=== PATIENT | male | born 1985 ===

== ENCOUNTER 2023-07-19 14:51 | Outpatient (REF) | payer MEDICAID, SELFPAY ==
[2023-07-19 16:11] LABS: MANUAL DIFF FLAG NO
[2023-07-19 16:21] LABS: Basophils Percent Auto 0.2 % (0-2); Hematocrit 44.7 % (42.0-52.0); Imm Gran Abs Auto 0.02 X10*3/uL (0.00-0.03); Imm Gran Pct Auto 0.2 % (0.0-0.4); Lymphocytes Absolute Auto 2.5 X10*3/uL (1.2-4.9); Lymphocytes Percent Auto 28.1 % (20-40); Mean Corpuscular HGB Conc 33.6 g/dl (31.0-36.0); Mean Corpuscular Hemoglobin 29.4 pg (27.0-33.0); Mean Corpuscular Volume 87.6 fL (80.0-98.0); Mean Platelet Volume 9.6 fL (9.4-12.4); Monocytes Absolute Auto 0.5 X10*3/uL (0.1-1.2); Monocytes Percent Auto 5.9 % (2-11); Neutrophils Absolute Auto 5.8 x10*3/uL (2.0-8.3); Neutrophils Percent Auto 65.6 % (45-73); Platelet Count 285 X10*3/uL (160-400); Red Cell Distribution Width 12.5 % (11.0-16.0); White Blood Count 8.8 X10*3/uL (4.8-10.8)
[2023-07-19 17:48] LABS: Alanine Aminotransferase 20 U/L (0-40); Albumin Level 5.1 g/dL (3.5-5.0); Alkaline Phosphatase 86 U/L (39-117); Anion Gap 12 (12-20); Aspartate Amino Transferase 19 U/L (5-37); Bilirubin Direct 0.3 mg/dL (0.0-0.5); Bilirubin Total 0.8 mg/dL (0.0-1.0); Blood Urea Nitrogen 14 mg/dL (9-16); Calcium 10.5 mg/dL (8.4-10.2); Carbon Dioxide 28 mmol/L (22-29); Chloride 105 mmol/L (96-108); Cholesterol 138 mg/dL (<200); Estimated Glomerular Filt Rate > 60; Glucose Random 218 mg/dL (60-115); HDL Cholesterol 43 mg/dL (>40); LDL Cholesterol Calculated 84 mg/dL (<100); Potassium 3.8 mmol/L (3.3-5.1); Sodium 141 mmol/L (135-145); Triglycerides 58 mg/dL (<150)
== END 2023-07-19 14:52 | disposition home or self-care (01) ==
LOC: HO.HHCL 14:51
PROVIDERS: Visit Provider Internal Medicine
DX: E11.42 Type 2 diabetes mellitus with diabetic polyneuropathy (principal)
CPT/HCPCS: 36415; 80048; 80061; 80076; 85025

== ENCOUNTER 2023-08-17 10:12 | Outpatient (REF) | payer MEDICAID, SELFPAY ==
--- NOTE | 2023-08-17 10:20 | EMG_ITS ---
Bilateral median and ulnar motor and sensory studies were performed. Bilateral radial and medial and lateral antecubital brachial sensory studies were performed, and paraspinal muscles were tested with a needle. IMPRESSION: 1. Mild bilateral median neuropathy across carpal tunnel. 2. Mild bilateral ulnar neuropathy across cubital tunnel. MD ASIF Oropeza/BASILIO / [phone]
== END 2023-08-17 10:13 | disposition home or self-care (01) ==
LOC: HO.NEURO 10:12
PROVIDERS: PCP Internal Medicine; Visit Provider Internal Medicine
DX: M79.641 Pain in right hand (principal); M79.642 Pain in left hand
CPT/HCPCS: 95886; 95913

== ENCOUNTER 2023-11-19 02:30 | Emergency (ER) | payer MEDICAID, SELFPAY ==
[2023-11-19 02:39] VITALS: BP 144/74; BP 148/86; PULSE 59; PULSE 72; RESP 18; TEMP 36.7; O2SAT 100; O2SAT 96; BMI 24.8
--- NOTE | 2023-11-19 02:40 | ED.NAVMDI ---
HPI - Nausea/Vomiting/Diarrhea General Chief complaint: Nausea/Vomiting/Diarrhea Stated complaint: NAUSEA VOMITTING Time Seen by Provider: 11/19/23 02:40 Source: patient Mode of arrival: ambulatory Limitations: no limitations History of Present Illness ED Provider: thanh LUQUE Narrative: Patient's history of anxiety cannabis abuse been vomiting for last 5 days with history of same in the past no diarrhea no significant abdominal pain no fever at home noticed to have 100.8 rectal temperature on arrival no other family member sick Related Data Previous Rx's ?Medication ?Instructions ?Recorded lorazepam 1 mg tablet (Ativan) 1 mg PO BID PRN anxiety #14 tabs 11/19/23 ondansetron 4 mg disintegrating 4 mg PO Q6-8H PRN nausea and 11/19/23 tablet vomiting #7 tabs Allergies Allergy/AdvReac Type Severity Reaction Status Date / Time No Known Allergies Allergy Verified 11/19/23 02:44 Review of Systems Review of Systems: Yes all other systems are reviewed and are negative [facility] Social History Social History Smoked in Last 30 Days: Yes Use of substances other than those prescribed or required for medical reasons: No Advance Directives: No Advance Directives Information Provided: No Do you have a plan to hurt others: No Plan Physical Exam Vital Signs: Vital Signs: Last Vital Signs Temp 99.3 F 11/19/23 05:16 Pulse 66 11/19/23 06:17 Resp 20 11/19/23 06:17 BP 98/53 L 11/19/23 06:17 Pulse Ox 97 11/19/23 06:17 O2 Del Method Room Air 11/19/23 06:17 BMI result Body Mass Index 24.8 Appearance: Alert. Oriented X3. No acute distress. Anxious Eyes: PERRLA, No Nystagmus ENT: Pharynx normal. Oral Mucosa moist Neck: Normal inspection. Neck supple. CVS: Normal heart rate and rhythm. Pulses normal. Respiratory: No respiratory distress. Equal air entry bilateral, no wheezing/rales/rhonchi Abdomen: Soft and nontender. Bowel sounds are present, no mass palpable, no CVA tenderness Skin: Skin warm and dry. Normal skin color. Normal skin turgor. Extremities: No lower extremity edema. No calf tenderness Neuro: Oriented X 3. No motor deficit. Medications Administered Discontinued Medications Generic Name Dose Route Start Last Admin Trade Name David PRN Reason Stop Dose Admin Sodium Chloride 1,000 mls @ 999 mls/hr 11/19/23 03:32 11/19/23 05:04 Ns IV 11/19/23 04:32 Infused .Q1H1M ONE Infusion Sodium Chloride 1,000 mls @ 999 mls/hr 11/19/23 03:32 11/19/23 05:04 Ns IV 11/19/23 04:32 Infused .Q1H1M ONE Infusion Ketorolac Tromethamine 30 mg 11/19/23 03:56 11/19/23 04:03 Ketorolac Tromethamine 30 Mg/Ml Vial IVPUSH 11/19/23 03:57 30 mg ONCE ONE Administration Lorazepam 2 mg 11/19/23 03:54 11/19/23 04:03 Lorazepam 2 Mg/Ml Vial IVPUSH 11/19/23 03:55 2 mg ONCE ONE Administration Ondansetron HCl 4 mg 11/19/23 03:02 11/19/23 03:04 Ondansetron Hcl 4 Mg/2 Ml Vial IVPUSH 11/19/23 03:03 4 mg ONCE ONE Administration Medical Decision Making Medical Decision Making [facility] Narrative: Patient with acute nausea vomiting with the use of cannabis likely the cause with anxiety and cyclic vomiting received 2 L of IV fluids initial labs showed elevated lactic acid from volume loss patient is not septic repeat lactic acid level was normal no abdominal pain creatinine level was also elevated when patient arrived repeat creatinine level has improved to 1.22 patient taking p.o. fluids now will discharge patient home Differential Diagnosis Differential Diagnoses: The differential diagnosis associated with the presentation includes Viral gastroenteritis/cyclic vomiting/gastritis/anxiety Admission/Observation Consideration of admission/observation: Escalation of care including admission/observation considered Lab Data [facility] Lab Attestation statement: I reviewed the patient's lab results. 11/19/23 02:57 11/19/23 06:21 Labs: Lab Results 11/19/23 11/19/23 11/19/23 Range/Units 02:57 04:04 05:20 WBC 14.6 H (4.8-10.8) X10*3/uL RBC 5.34 (4.60-5.80) X10*6/uL Hgb 15.8 (14.0-18.0) g/dl Hct 45.5 (42.0-52.0) % MCV 85.2 (80.0-98.0) fL MCH 29.6 (27.0-33.0) pg MCHC 34.7 (31.0-36.0) g/dl RDW 13.2 (11.0-16.0) % Plt Count 284 (160-400) X10*3/uL MPV 9.5 (9.4-12.4) fL Immature Gran % (Auto) 0.5 H (0.0-0.4) % Neut % (Auto) 80.9 H (45-73) % Lymph % (Auto) 12.4 L (20-40) % [place] % (Auto) 6.0 (2-11) % Eos % (Auto) 0.0 (0-4) % Baso % (Auto) 0.2 (0-2) % Lymph # (Auto) 1.8 (1.2-4.9) X10*3/uL [place] # (Auto) 0.9 (0.1-1.2) X10*3/uL Eos # (Auto) 0.0 (0.0-0.4) X10*3/uL Baso # (Auto) 0.0 (0.0-0.2) X10*3/uL Abs Immat Gran (auto) 0.07 H (0.00-0.03) X10*3/uL Absolute Neuts (auto) 11.8 H (2.0-8.3) x10*3/uL Absolute Nucleated RBC 0.000 (0.0-0.012) X10*3/uL Nucleated RBC % (auto) 0.0 (0.0-0.2) /100WBC Sodium 146 H (135-145) mmol/L Potassium 4.4 (3.3-5.1) mmol/L Chloride 107 (96-108) mmol/L Carbon Dioxide 21 L (22-29) mmol/L Anion Gap 22 H (12-20) BUN 21 H (9-16) mg/dL Creatinine 1.64 H (0.5-1.4) mg/dL Estim Creat Clear Calc 58.5 Estimated GFR 47 Random Glucose 232 H (60-115) mg/dL Lactic Acid 3.4 H* (0.5-2.0) mmol/L Lactic Acid F/U @ 2Hr 1.1 (0.5-2.0) mmol/L Calcium 10.8 H (8.4-10.2) mg/dL Total Bilirubin 1.0 (0.0-1.0) mg/dL Direct Bilirubin 0.2 (0.0-0.5) mg/dL AST 16 (5-37) U/L ALT 13 (0-40) U/L Alkaline Phosphatase 89 (39-117) U/L Total Protein 8.5 H (6.5-8.0) g/dL Albumin 5.3 H (3.5-5.0) g/dL Lipase 8 (8-78) U/L COVID-19 (ABDULL[facility]I) Negative (Negative) COVID-19 Clin Com See Note 11/19/23 Range/Units 06:21 WBC (4.8-10.8) X10*3/uL RBC (4.60-5.80) X10*6/uL Hgb (14.0-18.0) g/dl Hct (42.0-52.0) % MCV (80.0-98.0) fL MCH (27.0-33.0) pg MCHC (31.0-36.0) g/dl RDW (11.0-16.0) % Plt Count (160-400) X10*3/uL MPV (9.4-12.4) fL Immature Gran % (Auto) (0.0-0.4) % Neut % (Auto) (45-73) % Lymph % (Auto) (20-40) % [place] % (Auto) (2-11) % Eos % (Auto) (0-4) % Baso % (Auto) (0-2) % Lymph # (Auto) (1.2-4.9) X10*3/uL [place] # (Auto) (0.1-1.2) X10*3/uL Eos # (Auto) (0.0-0.4) X10*3/uL Baso # (Auto) (0.0-0.2) X10*3/uL Abs Immat Gran (auto) (0.00-0.03) X10*3/uL Absolute Neuts (auto) (2.0-8.3) x10*3/uL Absolute Nucleated RBC (0.0-0.012) X10*3/uL Nucleated RBC % (auto) (0.0-0.2) /100WBC Sodium 146 H (135-145) mmol/L Potassium 3.5 D (3.3-5.1) mmol/L Chloride 113 H (96-108) mmol/L Carbon Dioxide 23 (22-29) mmol/L Anion Gap 14 (12-20) BUN 21 H (9-16) mg/dL Creatinine 1.22 (0.5-1.4) mg/dL Estim Creat Clear Calc 78.6 Estimated GFR > 60 Random Glucose 167 H (60-115) mg/dL Lactic Acid (0.5-2.0) mmol/L Lactic Acid F/U @ 2Hr (0.5-2.0) mmol/L Calcium 8.7 D (8.4-10.2) mg/dL Total Bilirubin (0.0-1.0) mg/dL Direct Bilirubin (0.0-0.5) mg/dL AST (5-37) U/L ALT (0-40) U/L Alkaline Phosphatase (39-117) U/L Total Protein (6.5-8.0) g/dL Albumin (3.5-5.0) g/dL Lipase (8-78) U/L COVID-19 ([facility]ULL[facility]) (Negative) COVID-19 Clin Com Critical Care Time Critical Care Time Critical Care Time: Yes Total Critical Care Time: 35 Attestation: The patient was critically ill with a high probability of imminent or life threatening deterioration. I spent greater than 40???minutes of discontinuous time evaluating the patient,delivering critical care at the bedside, discussing and evaluating pertinent data with consultants. Critical care time does not include time spent performing separately billable procedures or teaching. Total time spent performing critical care was 35???minutes. Discharge Plan Discharge Clinical Impression: Gastroenteritis, Cannabis abuse, Dehydration, Anxiety Patient Disposition: Home, Self-Care Instructions: Gastroenteritis (ED), Generalized Anxiety Disorder (ED), Cannabis Abuse (ED) Additional Instructions: Drink plenty of fluids Stop using cannabis Medicine for anxiety and nausea as prescribed Prescriptions: New ondansetron 4 mg tablet,disintegrating 4 mg PO Q6-8H PRN (Reason: nausea and vomiting) Qty: 7 0RF lorazepam [Ativan] 1 mg tablet 1 mg PO BID PRN (Reason: anxiety) Qty: 14 0RF Print Language: Kazakh
[2023-11-19 03:02] LABS: MANUAL DIFF FLAG NO
[2023-11-19 03:03] LABS: Basophils Percent Auto 0.2 % (0-2); Hematocrit 45.5 % (42.0-52.0); Hemoglobin 15.8 g/dl (14.0-18.0); Imm Gran Abs Auto 0.07 X10*3/uL (0.00-0.03); Imm Gran Pct Auto 0.5 % (0.0-0.4); Lymphocytes Absolute Auto 1.8 X10*3/uL (1.2-4.9); Lymphocytes Percent Auto 12.4 % (20-40); Mean Corpuscular HGB Conc 34.7 g/dl (31.0-36.0); Mean Corpuscular Hemoglobin 29.6 pg (27.0-33.0); Mean Corpuscular Volume 85.2 fL (80.0-98.0); Mean Platelet Volume 9.5 fL (9.4-12.4); Monocytes Absolute Auto 0.9 X10*3/uL (0.1-1.2); Neutrophils Absolute Auto 11.8 x10*3/uL (2.0-8.3); Neutrophils Percent Auto 80.9 % (45-73); Platelet Count 284 X10*3/uL (160-400); Red Blood Count 5.34 X10*6/uL (4.60-5.80); Red Cell Distribution Width 13.2 % (11.0-16.0); White Blood Count 14.6 X10*3/uL (4.8-10.8)
[2023-11-19] MEDS: ondansetron HCL 4 MG/2 ML VIAL IVPUSH (03:04)
[2023-11-19 03:19] LABS: Lactic Acid 3.4 mmol/L (0.5-2.0)
[2023-11-19 03:24] LABS: Alanine Aminotransferase 13 U/L (0-40); Albumin Level 5.3 g/dL (3.5-5.0); Alkaline Phosphatase 89 U/L (39-117); Anion Gap 22 (12-20); Aspartate Amino Transferase 16 U/L (5-37); Bilirubin Direct 0.2 mg/dL (0.0-0.5); Blood Urea Nitrogen 21 mg/dL (9-16); Calcium 10.8 mg/dL (8.4-10.2); Carbon Dioxide 21 mmol/L (22-29); Chloride 107 mmol/L (96-108); Creatinine Clr Calc Pharmacy 58.5; Estimated Glomerular Filt Rate 47; Glucose Random 232 mg/dL (60-115); Lipase 8 U/L (8-78); Potassium 4.4 mmol/L (3.3-5.1); Sodium 146 mmol/L (135-145); Total Protein 8.5 g/dL (6.5-8.0)
[2023-11-19] MEDS: 0.9 % Sodium Chloride 1,000 ML 999 ML IV ×2 (03:40)
[2023-11-19 03:50] VITALS: BP 103/54; PULSE 60; RESP 14; TEMP 38.3; O2SAT 97
[2023-11-19] MEDS: LORazepam 2 MG/ML VIAL IVPUSH (04:03)
[2023-11-19] MEDS: Ketorolac Tromethamine 30 MG/ML VIAL IVPUSH (04:03)
[2023-11-19 04:24] LABS: COVID-19 Test Negative (Negative); IDNOW Serial# 6674DD1D
[2023-11-19 05:00] LABS: Reflex Lactate? Lactic Acid Added
[2023-11-19 05:16] VITALS: BP 102/51; PULSE 67; RESP 20; TEMP 37.4; O2SAT 95
[2023-11-19 05:35] LABS: ~Lactic Acid-LAB USE ONLY 1.1 mmol/L (0.5-2.0)
[2023-11-19 06:16] VITALS: BP 99/54; PULSE 59; RESP 20; O2SAT 99
[2023-11-19 06:17] VITALS: BP 98/49; BP 98/53; PULSE 66; RESP 20; O2SAT 97
[2023-11-19 06:39] LABS: Anion Gap 14 (12-20); Blood Urea Nitrogen 21 mg/dL (9-16); Calcium 8.7 mg/dL (8.4-10.2); Carbon Dioxide 23 mmol/L (22-29); Chloride 113 mmol/L (96-108); Creatinine Clr Calc Pharmacy 78.6; Estimated Glomerular Filt Rate > 60; Glucose Random 167 mg/dL (60-115); Potassium 3.5 mmol/L (3.3-5.1); Sodium 146 mmol/L (135-145)
--- NOTE | 2023-11-19 06:40 | PC.NURSE ---
resting quietly on stretcher, at this time, no more n/v at this time, awaiting lab results
[2023-11-19 07:11] VITALS: BP 98/53; PULSE 66; RESP 18; TEMP 37.1; O2SAT 97
== END 2023-11-19 07:12 | disposition home or self-care (01) ==
PROVIDERS: Emergency Provider Internal Medicine; PCP Internal Medicine
DX: K52.9 Noninfective gastroenteritis and colitis, unspecified (principal); F41.9 Anxiety disorder, unspecified; E86.0 Dehydration; F12.10 Cannabis abuse, uncomplicated; R50.9 Fever, unspecified; Z11.52 Encounter for screening for COVID-19
CPT/HCPCS: 36415; 80048; 80053; 82248; 83605; 83690; 85025; 87040; 87635; 96361; 96374; 96375; 99284; J1885; J2060; J2405

== ENCOUNTER 2023-11-21 14:57 | Emergency (ER) | payer MEDICAID, SELFPAY ==
--- NOTE | 2023-11-21 15:04 | ECG_ITS ---
Test Reason : QTC Blood Pressure : / mmHG Vent. Rate : 060 BPM Atrial Rate : 060 BPM P-R Int : 116 ms QRS Dur : 094 ms QT Int : 390 ms P-R-T Axes : 065 085 056 degrees QTc Int : 390 ms Normal sinus rhythm Normal ECG No previous ECGs available Referred By: Penny Lemos Electronically Signed By:JOSE EDUARDO KEENAN
[2023-11-21 15:21] VITALS: BP 138/80; BP 142/56; PULSE 68; PULSE 82; RESP 22; TEMP 37; O2SAT 98; O2SAT 99; BMI 27.7
[2023-11-21] MEDS: 0.9 % Sodium Chloride 1,000 ML 999 ML IV (15:49)
[2023-11-21 15:53] LABS: MANUAL DIFF FLAG NO
[2023-11-21] MEDS: LORazepam 2 MG/ML VIAL 1 MG IVPUSH (15:54)
[2023-11-21 15:55] LABS: Basophils Percent Auto 0.2 % (0-2); Eosinophils Percent Auto 0.1 % (0-4); Hematocrit 40.8 % (42.0-52.0); Hemoglobin 14.4 g/dl (14.0-18.0); Imm Gran Abs Auto 0.07 X10*3/uL (0.00-0.03); Imm Gran Pct Auto 0.5 % (0.0-0.4); Lymphocytes Absolute Auto 1.7 X10*3/uL (1.2-4.9); Lymphocytes Percent Auto 12.6 % (20-40); Mean Corpuscular HGB Conc 35.3 g/dl (31.0-36.0); Mean Corpuscular Hemoglobin 29.4 pg (27.0-33.0); Mean Corpuscular Volume 83.4 fL (80.0-98.0); Mean Platelet Volume 9.3 fL (9.4-12.4); Monocytes Absolute Auto 0.7 X10*3/uL (0.1-1.2); Monocytes Percent Auto 5.3 % (2-11); Neutrophils Absolute Auto 10.8 x10*3/uL (2.0-8.3); Neutrophils Percent Auto 81.3 % (45-73); Platelet Count 246 X10*3/uL (160-400); Red Blood Count 4.89 X10*6/uL (4.60-5.80); Red Cell Distribution Width 12.4 % (11.0-16.0); White Blood Count 13.3 X10*3/uL (4.8-10.8)
[2023-11-21] MEDS: droPERidol 5 MG/2 ML VIAL 1.25 MG IVPUSH (15:55)
--- NOTE | 2023-11-21 15:56 | ED_ITS ---
HPI - Nausea/Vomiting/Diarrhea General Chief complaint: Nausea/Vomiting/Diarrhea Stated complaint: ABD PAIN,SEEN RECENTLY FOR ELEV WHITE COUNT Time Seen by Provider: 11/21/23 15:56 Source: patient and other (girlfriend at the bedside) Mode of arrival: ambulatory Limitations: no limitations History of Present Illness ED Provider: Venea Grove PA-C HPI Narrative: 38 yo Citizen Of [place]-speaking male presents to the ER for re-evaluation of nausea, vomiting and upper abdominal pain for the last 1 week. Seen here on 11/18 for the same - treated wtih IVF x2L, toradol, ativan and zofran. Work up showed WBC 14.6. He was thought to have cyclical vomiting from marijuana. He was discharged with ODT Zofran and 14 tablets of Ativan. He states he was trying to take medications but his nausea and vomiting persisted. Was unable to tolerate p.o.. It felt like his symptoms were getting worse so his girlfriend brought him into the ER for evaluation. He had 2 episodes of nonbloody diarrhea this morning. Patient reports the pain comes and goes in his upper abdomen, cramping in nature. No known sick contacts. He does not smoke marijuana daily, 3 or 4 times per week per his girlfriend report. Denies a history of cyclical vomiting in the past. Denies daily alcohol use. MD elicited complaint: nausea, vomiting, diarrhea and abdominal pain Onset (ago): week(s) (1) Description of vomiting: bilious Description of diarrhea: watery Associated nausea: Yes Associated abdominal pain: Yes Location of pain: epigastric Pain consistency: intermittent Severity: moderate Quality: cramping Exacerbating factors: eating Relieving factors: none Context: marijuana use Associated symptoms: loss of appetite, malaise and nausea/vomiting Related Data Previous Rx's ?Medication ?Instructions ?Recorded lorazepam 1 mg tablet (Ativan) 1 mg PO BID PRN anxiety #14 tabs 11/19/23 ondansetron 4 mg disintegrating 4 mg PO Q6-8H PRN nausea and 11/19/23 tablet vomiting #7 tabs ondansetron 4 mg disintegrating 4 mg PO Q8H PRN nausea and 11/21/23 tablet vomiting #10 tabs Allergies Allergy/AdvReac Type Severity Reaction Status Date / Time No Known Allergies Allergy Verified 11/21/23 15:26 Review of Systems 2 Review of Systems: Yes all other systems are reviewed and are negative Gastrointestinal: Gastrointestinal: Reports nausea PMFSH Social History Social History Smoked in Last 30 Days: Yes Use of substances other than those prescribed or required for medical reasons: Yes Substance Use Type: Marijuana Advance Directives: No Advance Directives Information Provided: No Physical Exam 2 Vital Signs: Vital Signs: Last Vital Signs Temp 98.7 F 11/21/23 18:00 Pulse 80 11/21/23 18:00 Resp 18 11/21/23 18:00 BP 144/88 H 11/21/23 18:00 Pulse Ox 98 11/21/23 18:00 O2 Del Method Room Air 11/21/23 18:00 BMI result Body Mass Index 27.7 Appearance: Alert. Oriented X3. No acute distress. Head: normocephalic, atraumatic. Eyes: Pupils equal, round and reactive to light. ENT: Pharynx normal. No tonsillar swelling or exudate. Neck: Normal inspection. Neck supple. CVS: Normal heart rate and rhythm. Pulses normal. Respiratory: No respiratory distress. Breath sounds normal. Abdomen: Soft and nontender. +BS x4 Skin: Skin warm and dry. Normal skin color. Normal skin turgor. No rashes. Extremities: No lower extremity edema. No joint swelling. Neuro/psych: Oriented X 3. No motor deficit. No sensory deficit. CN II-XII intact. Normal speech and cognition. Medications Administered Discontinued Medications Generic Name Dose Route Start Last Admin Trade Name Freq PRN Reason Stop Dose Admin Droperidol 1.25 mg 11/21/23 15:38 11/21/23 15:55 Droperidol 5 Mg/2 Ml Vial IVPUSH 11/21/23 15:39 1.25 mg ONCE ONE Administration Sodium Chloride 1,000 mls @ 999 mls/hr 11/21/23 15:04 11/21/23 17:02 Ns IV 11/21/23 16:04 Infused .Q1H1M ONE Infusion Lactated Ringer's 1,000 mls @ 999 mls/hr 11/21/23 17:00 11/21/23 18:16 Lr IV 11/21/23 18:00 Infused .Q1H1M ROGE Infusion Lorazepam 1 mg 11/21/23 15:38 11/21/23 15:54 Lorazepam 2 Mg/Ml Vial IVPUSH 11/21/23 15:39 1 mg STAT STA Administration Ondansetron HCl 4 mg 11/21/23 19:05 11/21/23 19:21 Ondansetron Hcl 4 Mg/2 Ml Vial IVPUSH 11/21/23 19:06 4 mg ONCE ONE Administration Potassium Chloride 40 meq 11/21/23 16:54 11/21/23 17:38 Potassium Chloride Er 20 Meq Tab.Er.Prt PO 11/21/23 16:55 40 meq ONCE ONE Administration Medical Decision Making Medical Decision Making MDM Narrative: 38-year-old male with history of diabetes, anxiety and HLD presents to the ER for evaluation of nausea, vomiting, diarrhea, abdominal pain in the setting of marijuana use. Lab work today shows a improved but persistent leukocytosis of 13.3. He had a low potassium of 2.9 along with a mildly low bicarb and anion gap of 21. His BUN and creatinine were normal. This is likely due to GI losses and recurrent vomiting. He was given 2 L of IV fluids along with oral potassium after antiemetics. Patient was able to tolerate p.o.. He did have 1 episode of vomiting about 40 minutes after the oral potassium was administered. Repeat potassium was normal range. He was tolerating p.o. Gatorade. His U tox was positive for marijuana. Patient was advised to stop smoking marijuana as this the most likely cause of his symptoms. He is currently tolerating p.o. and is stable for discharge home. Differential Diagnosis Differential Diagnoses: The differential diagnosis associated with the presentation includes Cyclical vomiting from marijuana, pancreatitis, gastroenteritis, dehydration, cholecystitis, colitis Admission/Observation Consideration of admission/observation: Escalation of care including admission/observation considered Second presentation in 2 days considered observation/admission Lab Data MDM Lab Attestation statement: I reviewed the patient's lab results. Leukocytosis, hypokalemia 11/21/23 15:48 11/21/23 19:51 Labs: Lab Results 11/21/23 11/21/23 11/21/23 Range/Units 15:48 19:51 20:23 WBC 13.3 H (4.8-10.8) X10*3/uL RBC 4.89 (4.60-5.80) X10*6/uL Hgb 14.4 (14.0-18.0) g/dl Hct 40.8 L (42.0-52.0) % MCV 83.4 (80.0-98.0) fL MCH 29.4 (27.0-33.0) pg MCHC 35.3 (31.0-36.0) g/dl RDW 12.4 (11.0-16.0) % Plt Count 246 (160-400) X10*3/uL MPV 9.3 L (9.4-12.4) fL Immature Gran % (Auto) 0.5 H (0.0-0.4) % Neut % (Auto) 81.3 H (45-73) % Lymph % (Auto) 12.6 L (20-40) % [place] % (Auto) 5.3 (2-11) % Eos % (Auto) 0.1 (0-4) % Baso % (Auto) 0.2 (0-2) % Lymph # (Auto) 1.7 (1.2-4.9) X10*3/uL [place] # (Auto) 0.7 (0.1-1.2) X10*3/uL Eos # (Auto) 0.0 (0.0-0.4) X10*3/uL Baso # (Auto) 0.0 (0.0-0.2) X10*3/uL Abs Immat Gran (auto) 0.07 H (0.00-0.03) X10*3/uL Absolute Neuts (auto) 10.8 H (2.0-8.3) x10*3/uL Absolute Nucleated RBC 0.000 (0.0-0.012) X10*3/uL Nucleated RBC % (auto) 0.0 (0.0-0.2) /100WBC Sodium 144 (135-145) mmol/L Potassium 2.9 L* 3.7 D (3.3-5.1) mmol/L Chloride 107 (96-108) mmol/L Carbon Dioxide 19 L (22-29) mmol/L Anion Gap 21 H (12-20) BUN 14 (9-16) mg/dL Creatinine 1.17 (0.5-1.4) mg/dL Estim Creat Clear Calc 86.0 Estimated GFR > 60 Random Glucose 193 H (60-115) mg/dL Calcium 10.0 D (8.4-10.2) mg/dL Magnesium 1.9 (1.6-2.6) mg/dL Total Bilirubin 1.1 H (0.0-1.0) mg/dL Direct Bilirubin 0.4 (0.0-0.5) mg/dL AST 15 (5-37) U/L ALT 12 (0-40) U/L Alkaline Phosphatase 82 (39-117) U/L Total Protein 7.1 (6.5-8.0) g/dL Albumin 4.6 (3.5-5.0) g/dL Lipase 14 (8-78) U/L Urine Opiates Screen Not Detected (Not Detect) Ur Buprenorphine Scrn Not Detected (Not Detect) ng/mL Ur Oxycodone Screen Not Detected (Not Detect) ng/mL Urine Methadone Screen Not Detected (Not Detect) ng/mL Urine Fentanyl Screen Not Detected (Not Detect) Ur Barbiturates Screen Not Detected (Not Detect) Ur Phencyclidine Scrn Not Detected (Not Detect) Ur Amphetamines Screen Not Detected (Not Detect) U Benzodiazepines Scrn Not Detected (Not Detect) Urine Cocaine Screen Not Detected (Not Detect) U Marijuana (THC) Screen POSITIVE H (Not Detect) Ethyl Alcohol < 10 mg/dL Independent Interpretation I performed an independent interpretation of an: EKG Interpretation: EKG with normal sinus rhythm, ventricular rate 60 beats per minute, normal QTC, normal MA interval, no ST segment elevations or depressions. Independent Historian Clinical information obtained from an independent historian. History obtained from or confirmed by: Spouse External Record Review External record reviewed: Outpatient record and Prior outpatient labs Tests considered The following testing was considered but not selected: Considered CT scan of the abdomen however his abdominal exam is benign Prescription Management I considered prescription management with: Pain Medication and Other (Antiemetic) Chronic Conditions Patient?s care impacted by: Diabetes Critical Care Time Critical Care Time Critical Care Time: Yes Total Critical Care Time: 39 Attestation: I have personally provided critical care time exclusive of time spent on separately billable procedures. Time includes review of lab data, bedside re- evaluation after treatment with IV medications and IV fluids, and monitoring for potential decompensation. Intervention performed as documented. Discharge Plan Discharge Clinical Impression: Cyclical vomiting, Acute hypokalemia Patient Disposition: Home, Self-Care Instructions: Cyclic Vomiting Syndrome (ED) Additional Instructions: DO NOT SMOKE MARIJUANA If you develop new or worsening symptoms call 911 or come back to the ER for further evaluation. Prescriptions: New ondansetron 4 mg tablet,disintegrating 4 mg PO Q8H PRN (Reason: nausea and vomiting) Qty: 10 0RF No Action ondansetron 4 mg tablet,disintegrating 4 mg PO Q6-8H PRN (Reason: nausea and vomiting) Qty: 7 0RF lorazepam [Ativan] 1 mg tablet 1 mg PO BID PRN (Reason: anxiety) Qty: 14 0RF Print Language: Citizen Of [place]
[2023-11-21 16:23] LABS: Ethanol < 10 mg/dL
[2023-11-21 16:55] LABS: Alanine Aminotransferase 12 U/L (0-40); Albumin Level 4.6 g/dL (3.5-5.0); Alkaline Phosphatase 82 U/L (39-117); Anion Gap 21 (12-20); Aspartate Amino Transferase 15 U/L (5-37); Bilirubin Direct 0.4 mg/dL (0.0-0.5); Bilirubin Total 1.1 mg/dL (0.0-1.0); Blood Urea Nitrogen 14 mg/dL (9-16); Carbon Dioxide 19 mmol/L (22-29); Chloride 107 mmol/L (96-108); Estimated Glomerular Filt Rate > 60; Glucose Random 193 mg/dL (60-115); Lipase 14 U/L (8-78); Magnesium 1.9 mg/dL (1.6-2.6); Potassium 2.9 mmol/L (3.3-5.1); Sodium 144 mmol/L (135-145); Total Protein 7.1 g/dL (6.5-8.0)
[2023-11-21] MEDS: Lactated Ringers 1,000 ML 999 ML IV (17:04)
[2023-11-21] MEDS: Potassium Chloride ER 20 MEQ TAB.ER.PRT 40 MEQ PO (17:38)
--- NOTE | 2023-11-21 17:56 | PC.NURSE ---
pt po trailed with ice water, reported feeling better. no vomiting noted. PO potassium given
[2023-11-21 18:00] VITALS: BP 144/88; PULSE 80; RESP 18; TEMP 37.1; O2SAT 98
[2023-11-21] MEDS: ondansetron HCL 4 MG/2 ML VIAL IVPUSH (19:21)
[2023-11-21 20:37] LABS: Potassium 3.7 mmol/L (3.3-5.1)
[2023-11-21 20:40] LABS: Amphetamine Screen Urine Not Detected (Not Detect); Barbiturates, Urine Not Detected (Not Detect); Benzodiazepines Screen Urine Not Detected (Not Detect); Buprenorphine Scr Not Detected (Not Detect); Cannabinoid Screen Urine POSITIVE (Not Detect); Cocaine Screen Urine Not Detected (Not Detect); Fentanyl, urine Not Detected (Not Detect); Methadone Screen, Urine Not Detected (Not Detect); Opiate Screen Urine Not Detected (Not Detect); Oxycodone Screen Urine Not Detected (Not Detect); Phencyclidine Screen Urine Not Detected (Not Detect)
[2023-11-21 20:55] VITALS: BP 144/88; PULSE 80; RESP 18; TEMP 37.1; O2SAT 98
== END 2023-11-21 20:55 | disposition home or self-care (01) ==
PROVIDERS: Emergency Medicine; Physician Assistant; Emergency Provider Emergency Medicine Emergency Medical Services; PCP Internal Medicine
DX: R11.15 Cyclical vomiting syndrome unrelated to migraine (principal); E87.6 Hypokalemia; R11.2 Nausea with vomiting, unspecified; R94.31 Abnormal electrocardiogram [ECG] [EKG]; R50.9 Fever, unspecified; R10.13 Epigastric pain; F12.90 Cannabis use, unspecified, uncomplicated; Z79.899 Other long term (current) drug therapy
CPT/HCPCS: 36415; 80048; 80076; 80307; 83690; 83735; 84132; 85025; 93005; 96361; 96365; 96375; 99284; 99285; J1790; J2060; J2405; J7120

== ENCOUNTER 2024-06-19 09:35 | Outpatient (REF) | payer MEDICAID, SELFPAY ==
[2024-06-19 12:15] LABS: Alanine Aminotransferase 15 U/L (0-40); Albumin Level 4.4 g/dL (3.5-5.0); Alkaline Phosphatase 92 U/L (39-117); Anion Gap 11 (12-20); Aspartate Amino Transferase 17 U/L (5-37); Bilirubin Total 0.5 mg/dL (0.0-1.0); Blood Urea Nitrogen 11 mg/dL (9-16); Calcium 8.9 mg/dL (8.4-10.2); Carbon Dioxide 26 mmol/L (22-29); Chloride 107 mmol/L (96-108); Cholesterol 182 mg/dL (<200); Estimated Glomerular Filt Rate > 60; Glucose Random 237 mg/dL (60-115); HDL Cholesterol 38 mg/dL (>40); LDL Cholesterol Calculated 117 mg/dL (<100); Potassium 3.9 mmol/L (3.3-5.1); Sodium 140 mmol/L (135-145); Total Protein 6.9 g/dL (6.5-8.0); Triglycerides 137 mg/dL (<150)
[2024-06-19 12:30] LABS: Creatinine Urine 331.07 mg/dL; Microalbum/Creatinine Ratio Ur 7.2 ug/mg cr (<30)
== END 2024-06-19 09:36 | disposition home or self-care (01) ==
LOC: HO.HHCL 09:35
PROVIDERS: Visit Provider Internal Medicine
DX: E11.42 Type 2 diabetes mellitus with diabetic polyneuropathy (principal)
CPT/HCPCS: 36415; 80053; 80061; 82043; 82570

== ENCOUNTER 2024-09-19 13:28 | Outpatient (REF) | payer MEDICAID, SELFPAY ==
--- OUTSIDE RECORDS SUMMARY | 2024-09-19 15:39 | XMS_ITS | Clinical Summary ---
Author Organization [employer] Address [address] [place] [address] Care Team Providers Care License Registration Examiner Name Role Phone Indigo Mclean MD Primary Care Provide r Allergies No known active allergies Medications atorvastatin (Lipitor) 40 MG tabletIndicatio ns:Essential hypertension TAKE 1 TABLET BY MOUTH DAILY IN THE MORNING 90 tablet 1 04/04/19 25 Active lisinopril 10 MG tabletIndicatio ns:Essential hypertension TAKE 1 TABLET BY MOUTH EVERY DAY 90 tablet 04/04/19 25 Active omeprazole (PriLOSEC) [address] capsuleIndicati ons:Heartburn TAKE 1 CAPSULE BY MOUTH EVERY DAY IN THE MORNING BEFORE BREAKFAST, DO NOT BREAK, CRUSH, DISSOLVE OR CHEW 90 capsule 04/05/19 25 Active mirtazapine (Remeron) 30 MG tabletIndicatio ns:Mixed anxiety and depressive disorder Take 1 tablet (30 mg) by mouth at bedtime. 30 tablet 2 06/01/19 25 Active acetaminophen (Tylenol 8 Hour) 650 MG ER tabletIndicatio ns:Bilateral hand pain TAKE 2 TABLETS BY MOUTH EVERY 8 HOURS NEEDED FOR MILD PAIN FOR UP TO 10 DAYS. DO NOT BREAK, CRUSH, DISSOLVE OR CHEW. 30 tablet 06/01/19 25 Active hydrOXYzine HCl (Atarax) 50 MG tabletIndicatio ns:Mixed anxiety and depressive disorder TAKE 1 TABLET BY MOUTH EVERY 8 HOURS NEEDED FOR ITCHING FOR UP TO 10 DAYS 30 tablet 06/01/19 25 Active ciclopirox (Penlac) 8 % solutionIndicat ions:Onychomyco sis of multiple toenails with type 2 diabetes mellitus and peripheral neuropathy (CMS/HCC) APPLY TO THE AFFECTED AREA(S) TOPICALLY AT BEDTIME 6.6 mL 06/01/19 25 Active empagliflozin (Jardiance) 10 MGIndications:T ype 2 diabetes mellitus with diabetic polyneuropathy, without long-term current use of insulin (CMS/HCC) Take 1 tablet (10 mg) by mouth Once per day. 30 tablet 11 06/20/19 25 026 Active ondansetron (Zofran) 4 MG tabletIndicatio ns:Nausea TAKE 2 TABLETS BY MOUTH EVERY 8 HOURS NEEDED FOR NAUSEA OR VOMITING FOR UP TO 7 DAYS 20 tablet 1 09/20/19 25 Active ondansetron (Zofran) 4 MG tablet TAKE 2 TABLETS BY MOUTH EVERY 8 HOURS NEEDED FOR NAUSEA OR VOMITING FOR UP TO 7 DAYS 20 tablet 06/01/19 25 025 Discontinued(Re order (will not trigger notification to Pharmacy)) Active Problems Problem Noted Date Diagnosed Date Nausea 09/19/2024 Encounter for preventive care 04/04/2024 Assessment & Plan (04/04/2024 10:17 AM EST): See HPI Gastritis 01/19/2024 Assessment & Plan (01/19/2024 10:30 AM EDT): I advise patient to avoid NSAIDs, spicy and acid food, I advise to eat at the same time every day, I advise to elevate the head of the bed and take medications as prescribe Bilateral hand pain 07/19/2023 Heartburn 01/06/2023 Assessment & Plan (04/04/2024 10:16 AM EST): I advise patient to avoid NSAIDs, spicy and acid food, I advise to eat at the same time every day, I advise to elevate the head of the bed and take medications as prescribe Omeprazole 40mg daily Do not miss GI appointment Assessment & Plan (01/19/2024 10:30 AM EDT): As above Assessment & Plan (10/20/2023 2:00 PM EDT): I advise patient to avoid NSAIDs, spicy and acid food, I advise to eat at the same time every day, I advise to elevate the head of the bed and take medications as prescribe Assessment & Plan (02/02/2023 2:11 PM EST): I advise patient to avoid NSAIDs, spicy and acid food, I advise to eat at the same time every day, I advise to elevate the head of the bed and take medications as prescribe Assessment & Plan (01/06/2023 1:00 PM EDT): I advise patient to avoid NSAIDs, spicy and acid food, I advise to eat at the same time every day, I advise to elevate the head of the bed and take medications as prescribe Onychomycosis of multiple to enails with type 2 diabetes mellitus and peripheral neuropathy 06/23/2022 Assessment & Plan (06/23/2022 10:12 AM EDT): Ciclopirox apply daily If problem persists ill consider terbinafine treatment after review of labs Alcohol dependence 06/22/2022 Essential hypertension 06/22/2022 Assessment & Plan (06/19/2024 12:01 PM EDT): Blood pressure seems to be under control I advised low-sodium diet and continue with lisinopril 10 mg daily Assessment & Plan (04/04/2024 10:16 AM EST): I advised: - Aerobic exercise to reduce BP. Initial goal of 30 min walk 3-5x/week. Increase as tolerated. - low-sodium diet (goal: <2g/day) and heart healthy diet such as DASH to reduce BP and prevent ASCVD. - Home BP monitoring 1-2 x day with goal of <140/90. - Seek immediate medical attention for chest pain, palpitations, SOB, syncope, or sudden changes in mental status. - Do not change or discontinue current prescriptions without first consulting health care provider Assessment & Plan (01/19/2024 10:30 AM EDT): Maintenance: BMP: up to date Lipid Panel: up to date ASCVD Risk: high risk on atorvastatin 40mg daily - Aerobic exercise to reduce BP. Initial goal of 30 min walk 3-5x/week. Increase as tolerated. - low-sodium diet (goal: <2g/day) and heart healthy diet such as DASH to reduce BP and prevent ASCVD. - Home BP monitoring 1-2 x day with goal of <140/90. - Seek immediate medical attention for chest pain, palpitations, SOB, syncope, or sudden changes in mental status. - Do not change or discontinue current prescriptions without first consulting health care provider Assessment & Plan (10/20/2023 2:00 PM EDT): - Aerobic exercise to reduce BP. Initial goal of 30 min walk 3-5x/week. Increase as tolerated. - low-sodium diet (goal: <2g/day) and heart healthy diet such as DASH to reduce BP and prevent ASCVD. - Home BP monitoring 1-2 x day with goal of <140/90. - Seek immediate medical attention for chest pain, palpitations, SOB, syncope, or sudden changes in mental status. - Do not change or discontinue current prescriptions without first consulting health care provider Assessment & Plan (07/19/2023 2:46 PM EDT): -I dvise to take his blood pressure medication every day without missing any dose, also: - Aerobic exercise to reduce BP. Initial goal of 30 min walk 3-5x/week. Increase as tolerated. - low-sodium diet (goal: <2g/day) and heart healthy diet such as DASH to reduce BP and prevent ASCVD. - Home BP monitoring 1-2 x day with goal of <140/90. - Seek immediate medical attention for chest pain, palpitations, SOB, syncope, or sudden changes in mental status. - Do not change or discontinue current prescriptions without first consulting health care provider Assessment & Plan (01/06/2023 12:59 PM EDT): - Aerobic exercise to reduce BP. Initial goal of 30 min walk 3-5x/week. Increase as tolerated. - low-sodium diet (goal: <2g/day) and heart healthy diet such as DASH to reduce BP and prevent ASCVD. - Home BP monitoring 1-2 x day with goal of <140/90. - Seek immediate medical attention for chest pain, palpitations, SOB, syncope, or sudden changes in mental status. - Do not change or discontinue current prescriptions without first consulting health care provider Assessment & Plan (06/23/2022 10:03 AM EDT): Maintenance: BMP: ordered today Lipid Panel: ordered today ASCVD Risk: Calculate pending updated labs - Aerobic exercise to reduce BP. Initial goal of 30 min walk 3-5x/week. Increase as tolerated. - low-sodium diet (goal: <2g/day) and heart healthy diet such as DASH to reduce BP and prevent ASCVD. - Home BP monitoring 1-2 x day with goal of <140/90. - Seek immediate medical attention for chest pain, palpitations, SOB, syncope, or sudden changes in mental status. - Do not change or discontinue current prescriptions without first consulting health care provider. Today I re-initiate medication for BP lisinopril 10mg daily Mixed anxiety and depressive disorder 06/22/2022 Assessment & Plan (10/20/2023 2:02 PM EDT): Patient is stable following with therapist and psychiatrist Assessment & Plan (02/02/2023 2:12 PM EST): continue with therapist I increase mirtazapine to 30mg daily I added today hydroxyzine PRN Assessment & Plan (01/06/2023 11:34 AM EDT): Continue to follow with therapist Jamir Ricardo ([email or web address]) located [address] [place] [address] I will start patient on mirtazapine RTC 2-3 weeks televisit Type 2 diabetes mellitus 06/22/2022 Assessment & Plan (06/19/2024 12:01 PM EDT): Diabetes is: almost at goal - Lab Results Component Value Date HGBA1C 7.2 (A) 04/04/2024 HGBA1C 6.8 (A) 01/19/2024 HGBA1C 6.7 (A) 10/19/2023 - Lab Results Component Value Date MICROALBUR 4.3 08/13/2020 CREATININE 1.22 11/19/2023 -Changes: I added today Jardiance 10 mg daily - Diabetic eye exam: Up-to-date - Diabetic foot exam: Pending - Continue lifestyle modifications - Continue current medications - Follow up: 3 months Assessment & Plan (04/04/2024 10:17 AM EST): Diabetes is: not controlled - Lab Results Component Value Date HGBA1C 7.2 (A) 04/04/2024 HGBA1C 6.8 (A) 01/19/2024 HGBA1C 6.7 (A) 10/19/2023 - Lab Results Component Value Date MICROALBUR 4.3 08/13/2020 CREATININE 1.22 11/19/2023 -Changes: diabetic diet counseling - Diabetic eye exam:up to date - Diabetic foot exam:pending - Continue lifestyle modifications - Continue current medications - Follow up: 3 months Assessment & Plan (01/19/2024 10:31 AM EDT): Diabetes is: controlled - Lab Results Component Value Date HGBA1C 6.7 (A) 10/19/2023 HGBA1C 6.8 (A) 07/19/2023 HGBA1C 6.1 (A) 01/06/2023 - Lab Results Component Value Date MICROALBUR 4.3 08/13/2020 CREATININE 1.22 11/19/2023 -Changes: none - Diabetic eye exam:upcoming appointment - Diabetic foot exam:pending - Continue lifestyle modifications - Continue current medications - Follow up: 3 months Assessment & Plan (10/20/2023 2:01 PM EDT): Diabetes is: controlled - Lab Results Component Value Date HGBA1C 6.7 (A) 10/19/2023 HGBA1C 6.8 (A) 07/19/2023 HGBA1C 6.1 (A) 01/06/2023 - Lab Results Component Value Date MICROALBUR 4.3 08/13/2020 CREATININE 1.19 07/19/2023 -Changes: none - Diabetic eye exam:referral is in - Diabetic foot exam:pending - Continue lifestyle modifications - Continue current medications - Follow up: 3 months Assessment & Plan (07/19/2023 2:47 PM EDT): Diabetes is: controlled - Lab Results Component Value Date HGBA1C 6.8 (A) 07/19/2023 HGBA1C 6.1 (A) 01/06/2023 HGBA1C 7.0 (A) 06/23/2022 - Lab Results Component Value Date MICROALBUR 4.3 08/13/2020 CREATININE 0.87 06/23/2022 -Changes: none - Diabetic eye exam:referral today - Diabetic foot exam:pending - Continue lifestyle modifications - Follow up: 3 months Assessment & Plan (01/06/2023 1:00 PM EDT): Lab Results Component Value Date HGBA1C 6.1 (A) 01/06/2023 HGBA1C 7.0 (A) 06/23/2022 - Lab Results Component Value Date MICROALBUR 4.3 08/13/2020 CREATININE 0.87 06/23/2022 -: - Continue lifestyle modifications I discontinue metformin for now Assessment & Plan (06/23/2022 10:13 AM EDT): Current A1c: 7 BMP: ordered today Microalbumin: ordered today Foot Exam: Complete today Eye Exam: Discuss referral done Encouraged regular aerobic exercise for improved glycemic control Encouraged daily foot checks Encouraged lean protein snacks and to avoid foods high in sugar and simple carbohydrates Treatment Goals: A1c goal: <7% FBG goal: <130 2 hour post prandial goal: <180 Today I started again medication metformin 500mg BID For neuropathy ill consider adding gabapentin on next visit after review of labs Encounters Date Type Department Care Team Description 09/19/2024 10:00 AM EDT Office Visit [facility] [address] [place] [address] Indigo Mclean MD Type 2 diabetes mellitus with diabetic polyneuropathy, without long-term current use of insulin ([facility]); Nausea 09/19/2024 Travel 09/18/2024 Telephone [facility] [address] [place] [address] Indigo Mclean MD Chart Prep 09/18/2024 Travel 08/08/2024 10:30 AM EDT Office Visit [facility] [address] [place] [address] Tarsha Lara, OD Type 2 diabetes mellitus with both eyes affected by moderate nonproliferative retinopathy without macular edema, without long-term current use of insulin ([facility]) (Primary Dx); Dry eyes, bilateral; Bilateral retinal lattice degeneration 08/07/2024 Travel 06/24/2024 Travel 06/19/2024 9:00 AM EDT Office Visit [facility] [address] [place] [address] Indigo Mclean MD Essential hypertension (Primary Dx); Type 2 diabetes mellitus with diabetic polyneuropathy, without long-term current use of insulin ([facility]) 06/19/2024 Travel from Last 3 Months Immunizations Immunization Administration Dates Next Due Influenza injectable quadrivalent preservative f ree 01/06/2023,01/04/2019 Influenza, seasonal, injectable, preservative fr ee 01/19/2024 Pneumococcal Conjugate PCV 20 07/19/2023 Social History Tobacco Use Types Packs/Day Years Used Date Smoking Tobacco: Former Cigarettes Passive Smoke Exposure: Current Smokeless Tobacco: Never Tobacco Cessation:Counseling Given: Not Answered Alcohol Use Standard Drinks/Week Comments Never 0 (1 standard drink = 0.6 oz pur e alcohol) Alcohol Answer Date Recorded Frequency of Alcohol Consumption Not on file 10/19/2023 Average Number of Drinks Not on file 024 Frequency of Binge Drinking Not on file 09/27 Score 0 10/19/2023 Depression Answer Date Recorded Patient Health Questionnaire-9 Score 24 04/04/2024 Patient Health Questionnaire-9 Score 24 04/04/2024 Last PHQ-9: Questionnaire Data Not on file 0 04/04/2024 Housing Stability Answer Date Recorded What is your housing situation today? I am not s ure 09/19/[address] you li ve. Do you have problems with any of the following? None of the above 09/19/2024 Food Insecurity Answer Date Recorded Within the past 12 months, y ou worried that your food would run out before you got money to buy more: Never True 09/19/2024 Within the past 12 months,th e food you bought just didn't last and you didn't have enough money to get more: Never True Transportation Answer Date Recorded In the past 12 months, has l ack of transportation kept you from medical appts, meetings, work or from getting things needed for daily living? No 09/19/2024 Utilities Answer Date Recorded In the past 12 months, has t he electric, gas, oil or water company threatened to shut off services in your home? No 09/19/2024 Depression Answer Date Recorded Patient Health Questionnaire-2 Score 6 04/04/2024 Internet Access Answer Date Recorded Internet Access Q1 No 09/19/2024 Internet Access Q2 I do not want or need it 08/28 Sex and Gender Information Value Date Recorded Sex Assigned at Male 01/26/2022 10:35 AM EDT Legal Sex Male 10:35 AM EDT Gender Identity Male 01/26/2022 10:35 AM EDT Sexual Orientation Choose not to disclose 2021 10:35 AM EDT Last Filed Vital Signs Vital Sign Reading Time Taken Comments Blood Pressure 138/78 09/19/2024 10:09 AM EDT Pulse 78 09/19/2024 10:09 AM EDT Temperature 36.1 C (97 F) 09/19/2024 10:09 AM EDT Respiratory Rate 20 09/19/2024 10:09 AM EDT Oxygen Saturation 98% 09/19/2024 10:09 AM EDT Inhaled Oxygen Concentration - - Weight 77.1 kg (170 lb) 09/19/2024 10:09 AM EDT Height 172.7 cm (5' 8 ) 09/19/2024 10:09 AM EDT Body Mass Index 25.85 09/19/2024 10:09 AM EDT Plan of Treatment Upcoming Encounters Date Type Department Care Team (Late st Contact Info) Description 12/22/2024 10:00 AM EDT Office Visit [facility] [address] [place], [place] [phone] Indigo Mclean MD [address] [place] [address] Health Maintenance Due Date Last Done Comments Family Planning (PISQ) 1999 DTaP/Tdap/Td Vaccines (1 - Tdap) 2003 Hepatitis B Vaccines (1 of 3 - 19+ 3-dose series) 2003 Diabetes: Foot Exam 06/24/2023 06/23/2022, COVID-19 Vaccine ( - 2023- season) 2023 Depression Monitoring 10/02/2024 04/04/2024, 025 Alcohol/Substance Use Screening 10/18/2024 10/19/2023 Diabetes: Hemoglobin A1C 12/20/2024 025, 04/04/2024, 01/19/2024, Additional history exists Diabetes: Urine Protein Screening 06/19/2025 06/19/2024, 06/23/2022, 08/13/2020 Disability Screening 06/19/2025 06/19/2024 Lipid Panel 06/19/2025 06/19/2024, 04/2 04/2023, 06/23/2022, Additional history exists Eye Exam 08/08/2025 08/08/2024, 07/27, 08/08/2024, Additional history exists SDOH Screening 09/19/2025 09/19/2024 Tobacco Screening 09/19/2025 09/19/2024 Zoster Vaccines (1 of 2) 2034 RSV Patients and Patients Aged 60 years or older (1 - 1-dose 75+ series) 2059 HIV Screening Completed 06/23/2022 Hepatitis C Screening Completed 06/23/2022 Pneumococcal Vaccine: Pediatrics (0 to 5 Years) and At-Risk Patients (6 to 49) Years Completed 07/19/2023 Influenza Vaccine Completed 01/19/2024, , 01/04/2019 HIB Vaccines Aged Out No longer eligi ble based on patient's age to complete this topic HPV Vaccines Aged Out No longer eligi ble based on patient's age to complete this topic Hepatitis A Vaccines Aged Out No long er eligible based on patient's age to complete this topic IPV Vaccines Aged Out No longer eligi ble based on patient's age to complete this topic Meningococcal B Vaccine Aged Out No l onger eligible based on patient's age to complete this topic Meningococcal Vaccine Aged Out No toan chaparro eligible based on patient's age to complete this topic RSV under 20 months Aged Out No longe r eligible based on patient's age to complete this topic Rotavirus Vaccines Aged Out No longer eligible based on patient's age to complete this topic Procedures Procedure Name Priority Date/Time Associated Diagnosis Comments POCT GLYCATED HEMOGLOBIN, TOTAL Routine 09/19/2024 10:10 AM EDT Type 2 diabetes mellitus with diabetic polyneuropathy, without long-term current use of insulin (CMS/HCC) POCT GLUCOSE Routine 09/19/2024 10:08 AM EDT Type 2 diabetes mellitus with diabetic polyneuropathy, without long-term current use of insulin (CMS/HCC) COLOR FUNDUS PHOTOGRAPHY - OU - BOTH EYES Routine 08/08/2024 11:08 AM EDT Type 2 diabetes mellitus with both eyes affected by moderate nonproliferative retinopathy without macular edema, without long-term current use of insulin (CMS/HCC) COMPREHENSIVE METABOLIC PANEL Routine 06/19/2024 9:37 AM EDT Type 2 diabetes mellitus with diabetic polyneuropathy, without long-term current use of insulin (CMS/HCC) ALBUMIN, RANDOM URINE W/CREATININE Routine 06/19/2024 9:37 AM EDT Type 2 diabetes mellitus with diabetic polyneuropathy, without long-term current use of insulin (CMS/HCC) LIPID PANEL, STANDARD Routine 06/19/2024 9:37 AM EDT Type 2 diabetes mellitus with diabetic polyneuropathy, without long-term current use of insulin (CMS/HCC) POCT GLUCOSE Routine 06/19/2024 8:59 AM EDT Type 2 diabetes mellitus with diabetic polyneuropathy, without long-term current use of insulin (CMS/HCC) HEPATITIS C VIRAL RNA, QUANTITATIVE, REAL-TIME PCR Routine 06/23/2022 10:20 AM EDT Essential hypertension Type 2 diabetes mellitus with diabetic polyneuropathy, without long-term current use of insulin (CMS/HCC) HIV 1 RNA, QN PCR W/RFL RAISSA (RTI,PI,INTEGRASE) Routine 06/23/2022 10:20 AM EDT Essential hypertension Type 2 diabetes mellitus with diabetic polyneuropathy, without long-term current use of insulin ([facility]) from Last 3 Months or Most Recently Relevant to Health Maintenance Results * (ABNORMAL) POCT HGB A1C (09/19/2024 10:10 AM EDT) Hemoglobin A1C 7.0(A) 4.0 - 6.0 % QC Media Lot # [id number] Lot# Expiration Date , Blood 09/19/2024 10:1 0 AM EDT us Indigo Hunter MD POINT OF CARE TEST EN TER/EDIT ORDERABLES Final Result * (ABNORMAL) POCT Glucose (09/19/2024 10:08 AM EDT) Only the most recent of2 resultswithin the time period is included. Glucose Blood, POC 223(A) 60 - 200 mg/dL Comment:RANDOM QC Media Lot # [id number] Lot# Expiration Date , Blood Capillary blood specimen / Unknown 09/19/2024 10:08 AM EDT us Indigo Hunter MD POINT OF CARE TEST EN TER/EDIT ORDERABLES Final Result * Color Fundus Photography - OU - Both Eyes (08/08/2024 11:08 AM EDT) Narrative Tarsha Lara, OD - 08/08/2024 11:08 AM EDT Images from the original result were not included. FUNDUS PHOTO INTERPRETATION Fundus Photo Interpretation Report Reliability: OD: Good quality image OS: Good quality image Test Details: OD: Moderate cup-to-disc ratio (C/D), macula flat, (+) HMAs throughout posterior pole, (+) venous beading superiorly, (+) CWS superior arcae; (-) neovascularization of the disc (NVD)/neovascularization of the disc (NVD)/cystoid macular edema (CME). Stable to last photos from 02/29/24. OS: Moderate cup-to-disc ratio (C/D), macula flat, (+) HMAs throughout posterior pole, (+) CWS inferior arcades, (+) venous beading superiorly, (+) exudates temporal macula; (-) neovascularization of the disc (NVD)/neovascularization of the disc (NVD)/cystoid macular edema (CME). Generally stable to last photos from 02/29/24 - increase in exudates temporally. Comments: Type 2 diabetes mellitus (DM) w/ moderate non-proliferative diabetic retinopathy (NPDR) both eyes (OU) - RTC 6 months us Tarsha Lara OD OPHTH PHOTOGRAPHY Final Result * Albumin, Random Urine W/Creatinine (06/19/2024 9:37 AM EDT) Creatinine, Urine 331.07 mg/dL [facility] Microalbumin Urine 24.0 mg/L [facility] Microalbum Creatinine Ratio Ur 7.2 <30 ug/mg cr [facility] Comment:Albumin/Creatinine R atio Reference Ranges: Normal: < 30 ug/mg creatinine Microalbuminuria: 30 - 300 ug/mg creatinineClinical Albuminuria: > 300 ug/mg creatinine Urine (Urine, Random) 06/19/2024 9:37 AM EDT 06/19/2024 11:21 AM EDT us Indigo Hunter MD LAB URINE ORDERABLES Final Result [facility] [address] [place] [address] [phone] * (ABNORMAL) Lipid Panel, Standard (06/19/2024 9:37 AM EDT) Triglycerides 137 <150 mg/dL [facility] Comment:Desirable Triglyceri de: less than 150 mg/dLBorderline High Triglyceride 150-199 mg/dLHigh Triglyceride: 200-499 mg/dLVery High Triglyceride: greater than or equal to 5OO mg/dL Cholesterol 182 <200 mg/dL [facility] Comment:Desirable Cholestero l: less than 200 mg/dLBorderline High Cholesterol: 200-239 mg/dLHigh Cholesterol: greater than 239 mg/dL LDL Cholesterol Calculated 117(H) <100 mg/dL [facility] Comment:Desirable LDL: less than 100 mg/dLNear Optimal/Above Optimal LDL: 110- 129 mg/dLBorderline High LDL: 130-159 mg/dLHigh LDL: 160-189 mg/dLVery High LDL: greater than or equal to 190 mg/dL HDL Cholesterol 38(L) >40 mg/dL [facility] Comment:Desirable HDL: great er than 40 mg/dL Note: This HDL assay may give artificially low results in patients with liver disease. Blood Venous blood specimen / Unknown 06/19/2024 9:37 AM EDT 06/19/2024 11:49 AM EDT us Indigo Hunter MD LAB BLOOD ORDERABLES Final Result [facility] [address] [place] [address] [phone] * (ABNORMAL) Comprehensive Metabolic Panel (06/19/2024 9:37 AM EDT) Sodium 140 135 - 145 mmol/L [facility] Potassium 3.9 3.3 - 5.1 mmol/L [facility] Chloride 107 96 - 108 mmol/L [facility] Carbon Dioxide 26 22 - 29 mmol/L [facility] Anion Gap 11(L) 12 - 20 [facility] Urea Nitrogen (BUN) 11 9 - 16 mg/dL [facility] Creatinine, Serum 1.13 0.5 - 1.4 mg/dL [facility] Estimated Glomerular Filt Rate >60 [facility] Comment:Chronic Kidney Disea se: Estimated GFR < 60 mL/min/[id number] Kidney Disease: Estimated GFR < 15 mL/min/1.73m2 Glucose 237(H) 60 - 115 mg/dL [facility] Calcium 8.9 8.4 - 10.2 mg/dL [facility] Bilirubin, Total 0.5 0.0 - 1.0 mg/dL [facility] Aspartate Amino Transferase 17 5 - 37 U/L [facility] Alanine Aminotransferase 15 0 - 40 U/L [facility] Total Protein 6.9 6.5 - 8.0 g/dL [facility] Albumin Level 4.4 3.5 - 5.0 g/dL [facility] Alkaline Phosphatase 92 39 - 117 U/L [facility] Blood Venous blood specimen / Unknown 06/19/2024 9:37 AM EDT 06/19/2024 11:49 AM EDT us Indigo Hunter MD LAB BLOOD ORDERABLES Final Result Performing Organization Address City/[facility] Co de Phone Number [facility] [address] [place] [phone] * HIV-1 RNA, Quantitative, Real-Time PCR with Reflex to Genotype (RTI, PI, Integrase) (06/23/2022 10:20 AM EDT) Pathologist [facility] HIV 1 RNA, QN PCR NOT DETECTED copies/mL [facility]/N [facility], HIV 1 RNA, QN PCR NOT DETECTED Log copies/mL [facility], Comment: REFERENCE RANGE: NOT DETECTED copies/mL NOT DETECTED Log copies/mL This test was performed using Real-Time Polymerase Chain Reaction. Reportable range is 20 to 10,000,000 copies/mL (1.30-7.00 Log copies/mL). 06/23/2022 10:2 0 AM EDT 06/23/2022 10:21 AM EDT Narrative [facility] - 06/26/2022 12:21 PM EDT FASTING:YES FASTING: YES Indigo Hunter MD LAB BLOOD ORDERABLES Final Result Performing Organization Address City/State/[facility] Co de Phone Number [facility] [address], [place] [address] [facility], [address] [place] [address] * Hepatitis C Viral RNA, Quantitative, Real-Time PCR (06/23/2022 10:20 AM EDT) Pathologist [facility] HCV RNA, QN Real Time PCR <15 NOT DETECTED NOT DETECTED IU/mL [facility] [place] [facility] HCV RNA QN Real Time PCR <1.18 NOT DETECTED NOT DETECTED Log IU/mL [facility] [place] [facility] Comment: This test was performed using Real-Time Polymerase Chain Reaction. Reportable Range: 15 IU/mL to 100,000,000 IU/mL (1.18 Log IU/mL to 8.00 Log IU/mL). The analytical performance characteristics of this assay have been determined by [facility]. The modifications have not been cleared or approved by the FDA. This assay has been validated pursuant to the CLIA regulations and is used for clinical purposes. For more information on this test, go to: http://education.[employer]/faq/TQH07c9 (This link is being provided for informational/ educational purposes only.) 06/23/2022 10:2 0 AM EDT 06/23/2022 10:21 AM EDT [facility] - 06/26/2022 12:21 PM EDT FASTING:YES FASTING: YES us Indigo Hunter MD LAB BLOOD ORDERABLES Final Result Performing Organization Address [facility] Co de Phone Number [facility] [address], [place] [address] [facility] [address] [place] [address] from Last 3 Months or Most Recently Relevant to Health Maintenance Insurance [facility] [employer] Care Teams License Registration Examiner Relationship Specialty Start Date End Date Indigo Mclean MD [address] [place] [address] PCP - General Family Medicine 01/04/19
[2024-09-20 08:24] LABS: HBS Num1 10.67 mIU/mL (0-7.99)
[2024-09-20 09:31] LABS: HBS Num3 11.13 mIU/mL (0-7.99); ~Hepatitis B Surface Antibody GRAYZONE (Nonreactive)
== END 2024-09-19 13:29 | disposition home or self-care (01) ==
LOC: HO.HHCL 13:28
PROVIDERS: PCP Internal Medicine; Visit Provider Internal Medicine
DX: E11.42 Type 2 diabetes mellitus with diabetic polyneuropathy (principal)
CPT/HCPCS: 36415; 86706